=== PATIENT | female | born 1960 | race Caucasian/White ===

== ENCOUNTER 2021-04-23 06:12 | Inpatient (IN) | payer OTHER ==
[~2021-04-23] VITALS: Ht 157.5 cm; Wt 67.7 kg
[~2021-04-23 06:12] MED LIST: CALCIUM 500 +1 EACH PO; CRESTOR20 M1 PO; FEMARA2.5 MG PO
[2021-04-23 17:46] LABS: BILIRUBIN NEGATIVE (NEGATIVE); BLOOD NEGATIVE Ery/uL (NEGATIVE); CLARITY CLEAR (CLEAR); COLOR YELLOW (YELLOW); GLUCOSE (U) NORMAL (NORMAL); LEUKOCYTES NEGATIVE Leu/uL (NEGATIVE); NITRITE NEGATIVE (NEGATIVE); PROTEIN NEGATIVE (NEGATIVE); SPECIFIC GRAVITY 1.025 (1.001-1.030); UROBILINOGEN 0.2 mg/dL (0.2-1.0)
[2021-04-24 05:57] LABS: BASOPHIL 0.3 % (0-2); EOSINOPHIL 0 % (0-5); HCT 47.6 % (37.0-47.0); HGB 15.2 g/dl (12.5-16.0); LYMPHOCYTE 5.8 % (15-48); MCH 29.7 pg (25.0-31.0); MCHC 31.9 g/dL (32.0-36.0); NEUTROPHIL 87.3 % (41-80); NRBC 0; PLT 278 K/uL (150-400); RBC 5.12 M/uL (4.20-5.40); RDW 13.6 % (11.5-14.0)
[2021-04-24 06:05] LABS: WBC 30.1 K/uL (4.0-10.5)
[2021-04-24 06:20] LABS: ALBUMIN 2.6 g/dL (3.4-5.0); BILIRUBIN - TOTAL 0.4 mg/dL (0.2-1.0); BUN/CREAT RATIO (CALC) 12.5 RATIO; CREATININE 0.56 mg/dL (0.51-0.95); GLOBULIN (CALCULATION) 3.4 g/dL; POTASSIUM 4.1 mmol/L (3.5-5.1)
--- NOTE | 2021-04-25 07:18 | NUR ---
0630 - ENTERED PT ROOM FOUND HER TO BE LETHARGIC WITH LABOURED BREATHING, ELEVATED BP (201/90), 141 HR, 98.3 TEMP, 98% NON-REBREATHER. CALLED A RAPID RESPONSE. 0.4 NARCAN @ 0640 & 5MG LOPRESSOR @ 0645 WERE ADMINISTERED PER VERBAL ORDER (LIZZETTE ABDALLA). PT BECAME MORE ALERT, NEW BP 152/84, & HR 114.
[2021-04-25 07:45] LABS: BASOPHIL 0.2 % (0-2); EOSINOPHIL 0 % (0-5); HCT 44.2 % (37.0-47.0); HGB 13.9 g/dl (12.5-16.0); LYMPHOCYTE 5.7 % (15-48); MCH 29.7 pg (25.0-31.0); MCHC 31.4 g/dL (32.0-36.0); MCV 94.4 fL (78.0-100.0); MONOCYTE 4.5 % (0-12); MPV 10.4 fL (6.0-9.5); NEUTROPHIL 88.5 % (41-80); NRBC 0; PLT 231 K/uL (150-400); RBC 4.68 M/uL (4.20-5.40); RDW 13.6 % (11.5-14.0); WBC 27.1 K/uL (4.0-10.5)
[2021-04-25 07:57] LABS: BUN/CREAT RATIO (CALC) 14.9 RATIO; CREATININE 0.67 mg/dL (0.51-0.95); POTASSIUM 4.1 mmol/L (3.5-5.1)
--- NOTE | 2021-04-25 12:40 | NUR ---
START OF SHIFT CAME INTO PATIENT NOT RESPONDING ON NRB WITH RT, HOUSE SUP AND STAFF AT BEDSIDE. PATIENT WAS GIVEN ATIVAN AND DILAUDID PRIOR TO INCIDENT SO STAFF HAD NARCAN PATIENT PRECAUTION. PATIENT STILL WAS NOT FOLLOWING COMMANDS OR ANSWERING TO HER NAME. DR DASILVA WAS NOTIFIED AND . DR. DASILVA ORDERED TO [facility]ZO REVERSAL ROMAZICON. 2 DOSES WERE GIVEN PER ORDERES. CT OF HEAD, CHEST, ABD AND PELVIS WERE ORDERED STAT. ABG WERE OBTAINED WELL. PATIENT WAS PLACED ON BIPAP AFTER RETURNING TO THE FLOOR. DR. STONER AND VIDYA EVALUATED THE SCANS AND ABG'S. PATIENT HAS A INFECTION IN THE LUNGS UNKNOWN SEVERITY. OTHER CONCERNES WERE RULED OUT FROM SCANS. ANTIBIOTICS WERE ALSO ORDERED TO TREAT LUNGS. SPOKE WITH DAUGHTER AND UPDATED HER ON ALL RESULTS. PATIENT WILL REMAIN IN TCU FOR NOW PER DRS. WILL MONITOR CLOSELY FOR CHANGES.
[2021-04-26 06:07] LABS: BASOPHIL 0.2 % (0-2); EOSINOPHIL 0.1 % (0-5); HCT 40.7 % (37.0-47.0); HGB 12.7 g/dl (12.5-16.0); MCH 29.1 pg (25.0-31.0); MCHC 31.2 g/dL (32.0-36.0); MCV 93.3 fL (78.0-100.0); MONOCYTE 4.6 % (0-12); MPV 10.6 fL (6.0-9.5); NEUTROPHIL 85.4 % (41-80); NRBC 0; PLT 227 K/uL (150-400); RBC 4.36 M/uL (4.20-5.40); RDW 13.2 % (11.5-14.0); WBC 19.5 K/uL (4.0-10.5)
[2021-04-26 06:37] LABS: ALBUMIN 2.1 g/dL (3.4-5.0); BILIRUBIN - TOTAL 0.6 mg/dL (0.2-1.0); BUN/CREAT RATIO (CALC) 27.3 RATIO; CREATININE 0.44 mg/dL (0.51-0.95); MAGNESIUM 2.1 mg/dL (1.8-2.4); POTASSIUM 3.2 mmol/L (3.5-5.1); TOTAL PROTEIN 5.1 g/dL (6.4-8.2)
--- NOTE | 2021-04-26 17:20 | NUR ---
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 She had 3 children. One child is due to a MVA. Ms. Isaac now has custody of her 14 y/o grandson who is paraplegic. He has case management services and is on the waiting list for the [facility]. - Ms. Isaac was independent in the home and community prior to admission.
[2021-04-27 06:05] LABS: BASOPHIL 0.4 % (0-2); EOSINOPHIL 1.3 % (0-5); HCT 40.6 % (37.0-47.0); LYMPHOCYTE 12.7 % (15-48); MCH 29.7 pg (25.0-31.0); MCV 92.9 fL (78.0-100.0); MONOCYTE 8.1 % (0-12); MPV 10.8 fL (6.0-9.5); NRBC 0; PLT 224 K/uL (150-400); RBC 4.37 M/uL (4.20-5.40); RDW 13.1 % (11.5-14.0); WBC 13.3 K/uL (4.0-10.5)
[2021-04-27 06:30] LABS: ALBUMIN 2.2 g/dL (3.4-5.0); BILIRUBIN - TOTAL 0.6 mg/dL (0.2-1.0); BUN/CREAT RATIO (CALC) 25.6 RATIO; CREATININE 0.39 mg/dL (0.51-0.95); GLOBULIN (CALCULATION) 3.8 g/dL; POTASSIUM 3.6 mmol/L (3.5-5.1)
[2021-04-28 07:05] LABS: BUN/CREAT RATIO (CALC) 16.7 RATIO; CREATININE 0.42 mg/dL (0.51-0.95); PHOSPHORUS 2.3 mg/dL (2.6-4.7); POTASSIUM 3.2 mmol/L (3.5-5.1)
[2021-04-28 07:06] LABS: BASOPHIL 0.6 % (0-2); EOSINOPHIL 2.5 % (0-5); HCT 40.1 % (37.0-47.0); HGB 12.7 g/dl (12.5-16.0); LYMPHOCYTE 21.5 % (15-48); MCH 29.1 pg (25.0-31.0); MCHC 31.7 g/dL (32.0-36.0); MCV 91.8 fL (78.0-100.0); MONOCYTE 9.6 % (0-12); MPV 10.5 fL (6.0-9.5); NRBC 0; PLT 280 K/uL (150-400); RBC 4.37 M/uL (4.20-5.40); RDW 13.1 % (11.5-14.0); WBC 11.8 K/uL (4.0-10.5)
[2021-04-28] MEDS ORDERED: LEVAQUIN750 MG PO (10:52)
[2021-04-28] MEDS ORDERED: COLACE100 MG PO (10:52)
[2021-04-28] MEDS ORDERED: METRONIDAZOLE500 MG PO (10:52)
[2021-04-28] MEDS ORDERED: NORCO 5-325 TA1 EACH PO (10:52)
== END 2021-04-28 12:25 | disposition home or self-care (01) | DRG 907 ==
LOC: FAS 06:12 → FTCU 10:19
PROVIDERS: Internal Medicine; Student in an Organized Health Care Education/Training Program; ADMIT Allergy & Immunology Allergy
PROC: 0DQN0ZZ Repair Sigmoid Colon, Open Approach (ICD-10-PCS; principal; 2021-04-23 07:30)
PROC: 0DB80ZZ Excision of Small Intestine, Open Approach (ICD-10-PCS; 2021-04-23 07:30)
PROC: 0DNW0ZZ Release Peritoneum, Open Approach (ICD-10-PCS; 2021-04-23 07:30)
PROC: 0DNU0ZZ Release Omentum, Open Approach (ICD-10-PCS; 2021-04-23 07:30)
PROC: 0DJD8ZZ Inspection of Lower Intestinal Tract, Via Natural or Artificial Opening Endoscopic (ICD-10-PCS; 2021-04-23 07:30)
PROC: 0DBN8ZZ Excision of Sigmoid Colon, Via Natural or Artificial Opening Endoscopic (ICD-10-PCS; 2021-04-23 07:30)
PROC: 0DBP8ZZ Excision of Rectum, Via Natural or Artificial Opening Endoscopic (ICD-10-PCS; 2021-04-23 07:30)
PROC: 3E03329 Introduction of Other Anti-infective into Peripheral Vein, Percutaneous Approach (ICD-10-PCS; 2021-04-23 07:30)
PROC: 5A09357 Assistance with Respiratory Ventilation, Less than 24 Consecutive Hours, Continuous Positive Airway Pressure (ICD-10-PCS; 2021-04-25)
DX: K91.71 Accidental puncture and laceration of a digestive system organ or structure during a digestive system procedure (principal); J96.01 Acute respiratory failure with hypoxia; J96.02 Acute respiratory failure with hypercapnia; J18.9 Pneumonia, unspecified organism; A41.9 Sepsis, unspecified organism; J69.0 Pneumonitis due to inhalation of food and vomit; F05 Delirium due to known physiological condition; K56.7 Ileus, unspecified; J95.811 Postprocedural pneumothorax; K63.5 Polyp of colon; K62.1 Rectal polyp; K66.0 Peritoneal adhesions (postprocedural) (postinfection); D73.5 Infarction of spleen; J44.9 Chronic obstructive pulmonary disease, unspecified; I10 Essential (primary) hypertension; E78.5 Hyperlipidemia, unspecified; M81.0 Age-related osteoporosis without current pathological fracture; F17.200 Nicotine dependence, unspecified, uncomplicated; Z85.3 Personal history of malignant neoplasm of breast; Z86.73 Personal history of transient ischemic attack (TIA), and cerebral infarction without residual deficits; Z88.6 Allergy status to analgesic agent; Z88.0 Allergy status to penicillin; Z79.899 Other long term (current) drug therapy; Z80.3 Family history of malignant neoplasm of breast; Z90.710 Acquired absence of both cervix and uterus; Z98.890 Other specified postprocedural states; Z88.5 Allergy status to narcotic agent
CPT/HCPCS: 36415; 36600; 70450; 71045; 71275; 74022; 80048; 80053; 80202; 81003; 82803; 83605; 83735; 83880; 84100; 84145; 85025; 94010; 94640; 94660; 97162; C9113; J1100; J1170; J1610; J1644; J1650; J1940; J2060; J2185; J2250; J2310; J2405; J2543; J2550; J2704; J2800; J3010; J3370; J3480; J7040; J7050; J7120; Q9967

== ENCOUNTER 2021-04-29 17:36 | Inpatient (IN) | payer OTHER ==
[~2021-04-29] VITALS: Ht 157.5 cm; Wt 66.8 kg
[~2021-04-29 17:36] MED LIST changes: +COLACE100 MG PO; +LEVAQUIN750 MG PO; +METRONIDAZOLE500 MG PO; +NORCO 5-325 TA1 EACH PO
[2021-04-29 18:40] LABS: BASOPHIL 0.3 % (0-2); EOSINOPHIL 0.3 % (0-5); HCT 42.3 % (37.0-47.0); LYMPHOCYTE 10.3 % (15-48); MCH 29.5 pg (25.0-31.0); MCHC 33.1 g/dL (32.0-36.0); MCV 89.1 fL (78.0-100.0); MONOCYTE 7.4 % (0-12); MPV 10.5 fL (6.0-9.5); NEUTROPHIL 80.7 % (41-80); NRBC 0; PLT 363 K/uL (150-400); RBC 4.75 M/uL (4.20-5.40); RDW 12.9 % (11.5-14.0)
[2021-04-29 18:52] LABS: WBC 22.7 K/uL (4.0-10.5)
[2021-04-29 19:02] LABS: ALBUMIN 2.5 g/dL (3.4-5.0); BILIRUBIN - TOTAL 0.5 mg/dL (0.2-1.0); BUN/CREAT RATIO (CALC) 18.2 RATIO; CREATININE 0.55 mg/dL (0.51-0.95); GLOBULIN (CALCULATION) 4.6 g/dL; POTASSIUM 3.1 mmol/L (3.5-5.1); TOTAL PROTEIN 7.1 g/dL (6.4-8.2)
[2021-04-29 19:25] LABS: LACTIC ACID 2.3 mmol/L (0.4-1.9)
[2021-05-01 06:40] LABS: BASOPHIL 0.8 % (0-2); HCT 34.3 % (37.0-47.0); HGB 10.7 g/dl (12.5-16.0); MCH 29.6 pg (25.0-31.0); MCHC 31.2 g/dL (32.0-36.0); MONOCYTE 8.4 % (0-12); MPV 10.3 fL (6.0-9.5); NEUTROPHIL 70.9 % (41-80); NRBC 0; PLT 347 K/uL (150-400); RBC 3.61 M/uL (4.20-5.40); RDW 13.4 % (11.5-14.0); WBC 14.5 K/uL (4.0-10.5)
[2021-05-01 06:57] LABS: BUN/CREAT RATIO (CALC) 20.5 RATIO; C-REACTIVE PROTEIN 13.8 mg/dL (<=0.90); CREATININE 0.39 mg/dL (0.51-0.95); POTASSIUM 3.7 mmol/L (3.5-5.1)
[2021-05-02 05:25] LABS: INR 1.08 (0.9-1.2); PROTHROMBIN TIME 13.4 SECONDS (11.8-13.4)
[2021-05-02 06:41] LABS: BILIRUBIN - TOTAL 0.2 mg/dL (0.2-1.0); BUN/CREAT RATIO (CALC) 25.6 RATIO; CREATININE 0.39 mg/dL (0.51-0.95); GLOBULIN (CALCULATION) 3.3 g/dL; PHOSPHORUS 3.4 mg/dL (2.6-4.7); POTASSIUM 3.4 mmol/L (3.5-5.1); TOTAL PROTEIN 5.3 g/dL (6.4-8.2)
[2021-05-02 06:45] LABS: HGB 10.3 g/dl (12.5-16.0); RBC 3.51 M/uL (4.20-5.40); WBC 15.3 K/uL (4.0-10.5)
[2021-05-02 06:46] LABS: HCT 32.3 % (37.0-47.0); MCH 29.3 pg (25.0-31.0); MCHC 31.9 g/dL (32.0-36.0); RDW 13.2 % (11.5-14.0)
[2021-05-02 06:47] LABS: LYMPHOCYTE 15.5 % (15-48); MPV 10.5 fL (6.0-9.5); NEUTROPHIL 72.6 % (41-80); PLT 384 K/uL (150-400)
[2021-05-02 06:48] LABS: BASOPHIL 0.5 % (0-2); EOSINOPHIL 1.9 % (0-5); MONOCYTE 8.6 % (0-12)
[2021-05-02 06:50] LABS: NRBC 0
[2021-05-03 06:17] LABS: BASOPHIL 0.7 % (0-2); EOSINOPHIL 1.9 % (0-5); HCT 32.9 % (37.0-47.0); HGB 10.6 g/dl (12.5-16.0); LYMPHOCYTE 15.5 % (15-48); MCH 29.3 pg (25.0-31.0); MCHC 32.2 g/dL (32.0-36.0); MCV 90.9 fL (78.0-100.0); MONOCYTE 8.7 % (0-12); MPV 10.4 fL (6.0-9.5); NEUTROPHIL 71.4 % (41-80); NRBC 0; PLT 420 K/uL (150-400); RBC 3.62 M/uL (4.20-5.40); RDW 12.8 % (11.5-14.0); WBC 17.6 K/uL (4.0-10.5)
[2021-05-03 06:55] LABS: BUN/CREAT RATIO (CALC) 20.5 RATIO; CREATININE 0.39 mg/dL (0.51-0.95); PHOSPHORUS 3.1 mg/dL (2.6-4.7); POTASSIUM 3.4 mmol/L (3.5-5.1)
[2021-05-04 07:09] LABS: BASOPHIL 0.7 % (0-2); EOSINOPHIL 1.5 % (0-5); HCT 33.9 % (37.0-47.0); HGB 11.2 g/dl (12.5-16.0); LYMPHOCYTE 16.8 % (15-48); MCH 29.8 pg (25.0-31.0); MCV 90.2 fL (78.0-100.0); MONOCYTE 8.4 % (0-12); MPV 10.3 fL (6.0-9.5); NEUTROPHIL 71.4 % (41-80); NRBC 0; PLT 453 K/uL (150-400); RBC 3.76 M/uL (4.20-5.40); RDW 12.9 % (11.5-14.0); WBC 19.6 K/uL (4.0-10.5)
[2021-05-04 07:31] LABS: BUN/CREAT RATIO (CALC) 20.9 RATIO; CREATININE 0.43 mg/dL (0.51-0.95); POTASSIUM 4.1 mmol/L (3.5-5.1)
[2021-05-04 11:32] LABS: BILIRUBIN NEGATIVE (NEGATIVE); BLOOD NEGATIVE Ery/uL (NEGATIVE); CLARITY CLEAR (CLEAR); COLOR YELLOW (YELLOW); GLUCOSE (U) NORMAL (NORMAL); LEUKOCYTES NEGATIVE Leu/uL (NEGATIVE); NITRITE NEGATIVE (NEGATIVE); PROTEIN NEGATIVE (NEGATIVE); UROBILINOGEN 0.2 mg/dL (0.2-1.0); pH 7.5 (5.0-9.0)
[2021-05-05 06:04] LABS: BASOPHIL 0.8 % (0-2); EOSINOPHIL 2.6 % (0-5); HCT 32.7 % (37.0-47.0); HGB 10.6 g/dl (12.5-16.0); LYMPHOCYTE 19.4 % (15-48); MCH 29.4 pg (25.0-31.0); MCHC 32.4 g/dL (32.0-36.0); MCV 90.6 fL (78.0-100.0); MONOCYTE 7.6 % (0-12); MPV 10.3 fL (6.0-9.5); NEUTROPHIL 68.4 % (41-80); NRBC 0; PLT 503 K/uL (150-400); RBC 3.61 M/uL (4.20-5.40); WBC 16.5 K/uL (4.0-10.5)
[2021-05-05 06:23] LABS: BUN/CREAT RATIO (CALC) 10.2 RATIO; CREATININE 0.49 mg/dL (0.51-0.95); POTASSIUM 3.9 mmol/L (3.5-5.1)
[2021-05-06 06:15] LABS: BASOPHIL 0.9 % (0-2); HCT 33.6 % (37.0-47.0); HGB 10.8 g/dl (12.5-16.0); LYMPHOCYTE 22.1 % (15-48); MCH 29.2 pg (25.0-31.0); MCHC 32.1 g/dL (32.0-36.0); MCV 90.8 fL (78.0-100.0); MONOCYTE 9.1 % (0-12); MPV 10.2 fL (6.0-9.5); NEUTROPHIL 63.8 % (41-80); NRBC 0; PLT 528 K/uL (150-400); RDW 13.2 % (11.5-14.0); WBC 14.9 K/uL (4.0-10.5)
[2021-05-06] MEDS ORDERED: LOSARTAN POTASS25 MG PO (08:58)
== END 2021-05-06 11:18 | disposition home or self-care (01) | DRG 862 ==
LOC: FER 17:36 → FMS 23:55
PROVIDERS: Allergy & Immunology Allergy; Hospitalist; Internal Medicine; Nurse Practitioner Acute Care; Nurse Practitioner Family; Student in an Organized Health Care Education/Training Program; ADMIT Internal Medicine
PROC: 3E0436Z Introduction of Nutritional Substance into Central Vein, Percutaneous Approach (ICD-10-PCS; principal; 2021-04-30)
PROC: 02HV33Z Insertion of Infusion Device into Superior Vena Cava, Percutaneous Approach (ICD-10-PCS; 2021-04-30)
PROC: 3E03329 Introduction of Other Anti-infective into Peripheral Vein, Percutaneous Approach (ICD-10-PCS; 2021-04-30)
DX: T81.40XA Infection following a procedure, unspecified, initial encounter (principal); A41.9 Sepsis, unspecified organism; R65.20 Severe sepsis without septic shock; K63.2 Fistula of intestine; E87.2 Acidosis; J98.11 Atelectasis; T81.44XA Sepsis following a procedure, initial encounter; Z20.822 Contact with and (suspected) exposure to COVID-19; E87.6 Hypokalemia; I10 Essential (primary) hypertension; C50.919 Malignant neoplasm of unspecified site of unspecified female breast; E11.65 Type 2 diabetes mellitus with hyperglycemia; E78.5 Hyperlipidemia, unspecified; M81.0 Age-related osteoporosis without current pathological fracture; D73.5 Infarction of spleen; Z87.01 Personal history of pneumonia (recurrent); Z91.14 Patient's other noncompliance with medication regimen; Z90.710 Acquired absence of both cervix and uterus; Z90.49 Acquired absence of other specified parts of digestive tract; Z98.890 Other specified postprocedural states; Z79.899 Other long term (current) drug therapy
CPT/HCPCS: 36415; 71045; 72192; 80048; 80053; 81003; 82150; 82962; 83036; 83605; 83735; 84100; 84145; 85025; 85610; 86140; 87040; 87449; J0692; J1170; J1335; J1642; J1650; J2354; J2405; J7030; Q9967; U0002

== ENCOUNTER → 2021-07-16 | Day surgery (SDC) | payer OTHER ==
[~2021-07-16] VITALS: Ht 157.5 cm; Wt 58.1 kg
[~2021-07-16] MED LIST changes: +DIFLUCAN150 MG PO; +LOSARTAN POTASS25 MG PO; +MACROBID100 MG PO
== END | disposition home or self-care (01) ==
LOC: FAS 11:14
DX: L02.211 Cutaneous abscess of abdominal wall (principal); J44.9 Chronic obstructive pulmonary disease, unspecified; I10 Essential (primary) hypertension; E78.5 Hyperlipidemia, unspecified; M81.0 Age-related osteoporosis without current pathological fracture; F17.210 Nicotine dependence, cigarettes, uncomplicated; Z88.6 Allergy status to analgesic agent; Z88.0 Allergy status to penicillin; Z88.5 Allergy status to narcotic agent
CPT/HCPCS: 36415; 87070; 87075; 87077; 87205; 93005; J1100; J1170; J1335; J2250; J2370; J2405; J2704; J3010; J7120

== ENCOUNTER 2021-07-18 01:49 | Inpatient (IN) | payer OTHER ==
[~2021-07-18] VITALS: Ht 157.5 cm; Wt 58.3 kg
[2021-07-18 02:11] LABS: BASOPHIL 0.8 % (0-2); EOSINOPHIL 0.3 % (0-5); HCT 40.5 % (37.0-47.0); HGB 12.7 g/dl (12.5-16.0); LYMPHOCYTE 17.7 % (15-48); MCH 27.4 pg (25.0-31.0); MCHC 31.4 g/dL (32.0-36.0); MCV 87.5 fL (78.0-100.0); MONOCYTE 7.6 % (0-12); MPV 9.7 fL (6.0-9.5); NRBC 0; PLT 498 K/uL (150-400); RBC 4.63 M/uL (4.20-5.40); RDW 14.6 % (11.5-14.0)
[2021-07-18 02:21] LABS: INR 1.03 (0.9-1.2); PROTHROMBIN TIME 12.9 SECONDS (11.8-13.4)
[2021-07-18 02:30] LABS: ALBUMIN 3.1 g/dL (3.4-5.0); BILIRUBIN - TOTAL 0.2 mg/dL (0.2-1.0); CREATININE 0.69 mg/dL (0.51-0.95); POTASSIUM 3.6 mmol/L (3.5-5.1); TOTAL PROTEIN 7.1 g/dL (6.4-8.2)
[2021-07-18 03:50] LABS: LACTIC ACID 2.1 mmol/L (0.4-1.9)
[2021-07-19 06:19] LABS: BASOPHIL 0.9 % (0-2); EOSINOPHIL 1.4 % (0-5); HCT 39.6 % (37.0-47.0); HGB 12.6 g/dl (12.5-16.0); LYMPHOCYTE 20.6 % (15-48); MCH 27.9 pg (25.0-31.0); MCHC 31.8 g/dL (32.0-36.0); MCV 87.8 fL (78.0-100.0); MONOCYTE 11.1 % (0-12); MPV 9.7 fL (6.0-9.5); NEUTROPHIL 65.4 % (41-80); NRBC 0; PLT 456 K/uL (150-400); RBC 4.51 M/uL (4.20-5.40); RDW 14.3 % (11.5-14.0); WBC 14.1 K/uL (4.0-10.5)
[2021-07-19 07:01] LABS: ALBUMIN 2.7 g/dL (3.4-5.0); BILIRUBIN - TOTAL 0.2 mg/dL (0.2-1.0); BUN/CREAT RATIO (CALC) 11.3 RATIO; CREATININE 0.62 mg/dL (0.51-0.95); GLOBULIN (CALCULATION) 3.9 g/dL; POTASSIUM 4.1 mmol/L (3.5-5.1); TOTAL PROTEIN 6.6 g/dL (6.4-8.2)
[2021-07-20 06:30] LABS: BASOPHIL 0.4 % (0-2); EOSINOPHIL 0.7 % (0-5); HCT 41.3 % (37.0-47.0); HGB 12.9 g/dl (12.5-16.0); LYMPHOCYTE 14.8 % (15-48); MCH 27.1 pg (25.0-31.0); MCHC 31.2 g/dL (32.0-36.0); MCV 86.8 fL (78.0-100.0); MPV 9.7 fL (6.0-9.5); NEUTROPHIL 75.4 % (41-80); NRBC 0; PLT 485 K/uL (150-400); RBC 4.76 M/uL (4.20-5.40); RDW 14.3 % (11.5-14.0)
[2021-07-20 06:38] LABS: WBC 24.1 K/uL (4.0-10.5)
[2021-07-20 07:12] LABS: BUN/CREAT RATIO (CALC) 12.5 RATIO; CREATININE 0.8 mg/dL (0.51-0.95); POTASSIUM 4.6 mmol/L (3.5-5.1)
[2021-07-21 07:15] LABS: BASOPHIL 0.4 % (0-2); EOSINOPHIL 0.5 % (0-5); HCT 37.3 % (37.0-47.0); HGB 11.9 g/dl (12.5-16.0); LYMPHOCYTE 18.3 % (15-48); MCH 27.5 pg (25.0-31.0); MCHC 31.9 g/dL (32.0-36.0); MCV 86.3 fL (78.0-100.0); MONOCYTE 9.5 % (0-12); MPV 9.5 fL (6.0-9.5); NEUTROPHIL 70.8 % (41-80); NRBC 0; PLT 417 K/uL (150-400); RBC 4.32 M/uL (4.20-5.40); RDW 14.5 % (11.5-14.0)
[2021-07-21 07:35] LABS: BUN/CREAT RATIO (CALC) 7.9 RATIO; CREATININE 0.63 mg/dL (0.51-0.95); POTASSIUM 4.3 mmol/L (3.5-5.1)
[2021-07-22 03:35] LABS: BASOPHIL 0.4 % (0-2); EOSINOPHIL 0.7 % (0-5); HCT 38.5 % (37.0-47.0); HGB 12.1 g/dl (12.5-16.0); LYMPHOCYTE 21.9 % (15-48); MCH 27.3 pg (25.0-31.0); MCHC 31.4 g/dL (32.0-36.0); MCV 86.7 fL (78.0-100.0); MPV 9.4 fL (6.0-9.5); NEUTROPHIL 64.3 % (41-80); NRBC 0; PLT 420 K/uL (150-400); RBC 4.44 M/uL (4.20-5.40); RDW 14.6 % (11.5-14.0); WBC 15.8 K/uL (4.0-10.5)
[2021-07-22 03:36] LABS: MONOCYTE 12.3 % (0-12)
--- NOTE | 2021-07-23 09:45 | NUR ---
Order received for PICC Line. Risks and benefits explained for PICC line placement. Verbalized understanding. Consent obtained. Time Out completed with Nery Benites RN who will assist with insertion as needed. Patients right upper arm vein visualized using the Site Rite 6. The site was marked with a surgical marker. Arm circumference and initial PICC length measured. The Sherlock device was placed on the patient's chest in the appropriate position. The patient was draped and prepped in sterile fashion. The area was then numbed with 1 cc of 1 % Lidocaine. Time was given for Lidocaine to take effect. A 21 gauge needle was used to access the vein guided by the Site Rite 6 ultrasound. Blood return noted. The guide wire was advanced through the needle into the vein. The needle was removed and the tourniquet released. The sheath introducer was inserted over the guide wire into the vein. The wire was removed and the cap was placed on the sheath introducer. The 4 FR Single Lumen Power PICC was trimmed at 44 cm then guided into the position using the Sherlock device. Blood return was noted, line flushed with normal saline. The guidewire was removed then the sheath introducer was removed. Site dressed with sterile dressing. STAT CXR was ordered to verify placement.
[2021-07-23 10:35] LABS: HCT 37.3 % (37.0-47.0); HGB 11.7 g/dl (12.5-16.0); MCH 27.3 pg (25.0-31.0); MCHC 31.4 g/dL (32.0-36.0); MCV 86.9 fL (78.0-100.0); MPV 9.5 fL (6.0-9.5); RBC 4.29 M/uL (4.20-5.40); RDW 14.4 % (11.5-14.0); WBC 14.9 K/uL (4.0-10.5)
[2021-07-23] MEDS ORDERED: MIRALAX17 GM PO (12:52)
[2021-07-23] MEDS ORDERED: METFORMIN HCL500 MG PO (12:52)
[2021-07-23] MEDS ORDERED: LACTINEX1 EACH PO (12:52)
--- NOTE | 2021-07-23 13:34 | NUR ---
LATE ENTRY from 07/22/21 PT IS REQUESTING OUTPT INFUSION DUE TO HER INSURANCE NOT COVERING HH. PT. WILL BE SET UP WITH OUTPT. INFUSION.
--- NOTE | 2021-07-23 13:36 | NUR ---
MET WITH PT TO CONFIRM THAT SHE IS REQUESTING OUTPT FOR INFUSION. PT STATED THAT SHE WANTS TO COME TO THE HOSPITAL FOR HER IV ABX. ADVISED PEGGY MCKEON AND HER NURSE, ALYSSA. ADVISED MIKE THAT PT WILL NEED AN ORDER FOR OSTOMY BAGS. GAVE PT INFORMATION REGARDING [facility] WHO CAN ORDER HER OSTOMY BAGS. THEY CONTENT CURATOR WILL BE BACK IN THE OFFICE ON MONDAY. ADVISED MIKE AND THE NURSE, ALYSSA. PT WILL BE GIVEN EXTRA OSTOMY BAGS UNTIL SHE CAN PLACE ORDER ON MONDAY.
== END 2021-07-23 15:12 | disposition home or self-care (01) | DRG 871 ==
LOC: FER 01:49 → FICU 05:09 → FMS 12:07
PROVIDERS: Allergy & Immunology Allergy; Emergency Medicine; Family Medicine; Nurse Practitioner Acute Care; ADMIT Internal Medicine
PROC: 02HV33Z Insertion of Infusion Device into Superior Vena Cava, Percutaneous Approach (ICD-10-PCS; principal; 2021-07-20)
PROC: 3E03329 Introduction of Other Anti-infective into Peripheral Vein, Percutaneous Approach (ICD-10-PCS; 2021-07-23)
DX: A41.1 Sepsis due to other specified staphylococcus (principal); K65.1 Peritoneal abscess; K63.1 Perforation of intestine (nontraumatic); K63.2 Fistula of intestine; B37.0 Candidal stomatitis; J98.11 Atelectasis; R65.20 Severe sepsis without septic shock; E88.09 Other disorders of plasma-protein metabolism, not elsewhere classified; K59.00 Constipation, unspecified; K21.9 Gastro-esophageal reflux disease without esophagitis; I10 Essential (primary) hypertension; J43.9 Emphysema, unspecified; E78.5 Hyperlipidemia, unspecified; M81.0 Age-related osteoporosis without current pathological fracture; F17.210 Nicotine dependence, cigarettes, uncomplicated; E11.65 Type 2 diabetes mellitus with hyperglycemia; Z79.899 Other long term (current) drug therapy; Z85.3 Personal history of malignant neoplasm of breast; Z82.49 Family history of ischemic heart disease and other diseases of the circulatory system; Z88.5 Allergy status to narcotic agent; Z88.0 Allergy status to penicillin; Z90.710 Acquired absence of both cervix and uterus; Z80.3 Family history of malignant neoplasm of breast; Z88.8 Allergy status to other drugs, medicaments and biological substances
CPT/HCPCS: 36415; 71045; 80048; 80053; 80202; 83036; 83605; 84145; 85025; 85610; 87040; 93005; 94010; 94760; C1751; G0378; J0744; J1170; J1335; J1450; J1642; J1956; J2185; J2405; J3370; J7030; J7040; J7050